=== PATIENT | male | born 1970 | race Caucasian/White ===

== ENCOUNTER 2025-08-14 11:44 | Inpatient (IN) | payer OTHER, SELFPAY ==
[2025-08-14] VITALS (10 sets, daily range): BP systolic 143–175; BP diastolic 74–89; BMI 43.2; BMI 43.3
--- NOTE | 2025-08-14 07:51 | ED.GENMED ---
History of Present Illness
General
Chief Complaint: Oral/Mouth Problem
Time Seen by Provider: 08/14/25 07:48
Course
Orders/Labs/Results
Orders:
Orders
08/14/25 07:47
CT Neck With Iv Contrast Urgent
Comment:
Reason For Exam: lower mouth swelling, r/o ludwigs
Complete Blood Count/With Diff Urgent
Comprehensive Metabolic Panel Urgent
PTT Urgent
Prothrombin Time Urgent
Dexamethasone Sod Phosphate [Decadron] 10 mg IV NOW STA
Famotidine [Pepcid] 20 mg IV NOW STA
08/14/25 07:56
Diphenhydramine [Benadryl] 50 mg .ROUTE .STK-MED ONE
Vital Signs
Initial and Last Documented VS:
Initial Vital Signs
Temp Pulse Resp BP Pulse Ox
98.7 F 94 16 175/81 95
08/14/25 07:33 08/14/25 07:33 08/14/25 07:33 08/14/25 07:33 08/14/25 07:33
Last Documented Vital Signs
Temp Pulse Resp BP Pulse Ox
98.7 F 94 16 175/81 95
08/14/25 07:33 08/14/25 07:33 08/14/25 07:33 08/14/25 07:33 08/14/25 07:51
*Pulse Oximetry
SaO2: 95
Oxygen Mode of Delivery: Room air
ED Attending Note
ED Attending Note
Patient seen and examined by attending physician: Yes
I performed the substantive portion of visit, reviewed & personally made and approve the management plan that is documented in note by myself or CHANEL.: Yes
I performed a history and physical exam of patient and discussed management with resident, I reviewed resident's note and agree with documented findings and plan of care.: Yes
ED Attending Note:
54-year-old male with history of hypertension on lisinopril presenting to the emergency department with swelling to the tongue. Patient reports that he woke up acutely around 330 this morning with swelling to the tongue and fullness in the mouth.
Difficulty through his mouth, however no difficulty breathing through his nose. No feeling of throat closure. Denies having these symptoms in the past. He last took his lisinopril yesterday. Denies any recent dental infections or fever. Denies
chest pain. Denies abdominal pain. Denies additional acute medical complaints.
Vital signs on arrival significant for high blood pressure. On exam, patient with significant swelling to the right side of the tongue as well as swelling underneath the floor of the, as well as submandibular swelling. Concern for acute angioedema
versus Siddharth's angina. Suspect that the angioedema could be secondary to lisinopril, however the floor of the mouth swelling raises concern for possible Siddharth's. Will administer steroids, famotidine. Patient received Benadryl prior to arrival.
Will urgently obtain a CT of the neck for any signs of suspicious infection. Will continue to very closely monitor airway.
-
Portions of this chart may have been created with voice recognition software.� Occasional wrong word or��sound alike� substitutions may have occurred due to the inherent limitations of voice recognition software.
Discharge Plan
Interventions
Interventions:
*Risk Screen - Suicide Last Done: 08/14/25 07:33
*Neglect/Abuse Screening Last Done: 08/14/25 07:33
Discharge Date and Time
Print Language: BOTSWANAN
--- NOTE | 2025-08-14 07:51 | ED.GENMED ---
History of Present Illness
<Angelo Alcazar PA-C - Last Filed: 08/14/25 10:22>
General
Chief Complaint: Oral/Mouth Problem
Source: patient and spouse
Time Seen by Provider: 08/14/25 07:48
History of Present Illness
History of Present Illness:
54-year-old male with past medical history of hypertension managed on lisinopril and another antihypertensive medication that patient cannot remember at the moment presenting to the ER for evaluation after feeling as tongue/throat started to swell
around 3 AM, woke up at 6 with significant swelling to the right side of his tongue and difficulty swallowing. Patient denies any other symptoms, any new foods or anything else that he could think of that might cause an allergic reaction. Denies
any history of similar. No fevers or recent illnesses infectious symptoms. Patient is without any pain. He did take 125 mg tablet of Benadryl prior to arrival with no relief.
Past History
<Angelo Alcazar PA-C - Last Filed: 08/14/25 10:22>
Past History
ED Past Medical History: HTN
ED Past Surgical History: Orthopedic
Social History
Tobacco: Non-smoker
Alcohol: Occasional
Drug: None
Personal:
Living: with family
Review of Systems
<Angelo Alcazar PA-C - Last Filed: 08/14/25 10:22>
Review of Systems
All Other Systems: ROS reviewed and negative except as documented in HPI and ROS
Phy Exam
<MICHAEL Steel Last Filed: 08/14/25 10:22>
Physical Exam
Physical Exam:
GENERAL: Alert , in no apparent distress
HEAD: Normocephalic atraumatic
EYE: conjunctiva clear
NECK: Supple, firmness within the submandibular region with edema noted. no stridor, no trismus
ENT: moderate to severe right sided tongue edema, posterior oropharynx with no edema. Tolerating secretions. mmm.
CARDIAC: Regular rate and rhythm
LUNGS: Clear breath sounds bilaterally, no acute respiratory distress, no wheezes/rales/rhonchi
NEUROLOGICAL: Alert and oriented
SKIN: Warm and dry, skin intact.
MUSCULOSKELETAL: well perfused. edema to dorsum of feet bilateral is normal per patient
PSYCH: Normal and appropriate interaction.
Scores
<Angelo Alcazar PA-C - Last Filed: 08/14/25 10:22>
Heart Failure Risk
Heart Failure Risk Score: Not Applicable
Heart Score for Chest Pain Patients
STEMI patient?: Not applicable
Withdrawal Assessment of Alcohol
Withdrawal Assessment Completed?: Not applicable
Course
<Angelo Alcazar PA-C - Last Filed: 08/14/25 10:22>
Orders/Labs/Results
Orders:
Orders
08/14/25 07:47
CT Neck With Iv Contrast Urgent
Comment:
Reason For Exam: lower mouth swelling, r/o ludwigs
Dexamethasone Sod Phosphate [Decadron] 10 mg IV NOW STA
Famotidine [Pepcid] 20 mg IV NOW STA
08/14/25 07:56
Diphenhydramine [Benadryl] 50 mg .ROUTE .STK-MED ONE
08/14/25 08:15
Diphenhydramine [Benadryl] 25 mg IV NOW STA
08/14/25 08:27
Complete Blood Count/With Diff Urgent
Comprehensive Metabolic Panel Urgent
PTT Urgent
Prothrombin Time Urgent
08/14/25 08:28
Lidocaine 4% Cream [Lmx 4] 2 applic TOPICAL NOW STA
Lidocaine HCl Mpf [Xylocaine 4% Mpf] 0.5 ml NASAL NOW STA
08/14/25 08:55
Ampicillin/Sulbactam 3 G [Unasyn] 3 gm 0.9% Sodium Chloride 100 ml [Nss] 100 ml IV NOW
08/14/25 09:00
Flush (0.9% Sodium Chloride) [Flush (Nss)] See Dose Instructions IV PER PROTOCOL
08/14/25 09:52
Admit/Transfer Patient As Directed
Co-Sign Provider:
Level of Care: Inpatient admission
Assign to:: IMU- Intermediate Care
Physician / Group: Sabine Ortega
Diagnosis: concern for Siddharth angina versus SANYA-I angioedema
Reason for Hospitalization: concern for Siddharth angina versus SANYA-I angioedema
Expected length of stay greater than two midnights?: Yes
ELOS- Estimated Length of Stay in days: 3
I certify the patient meets the requirements for IP care: Yes
PRN Pain Medication Management As Directed
May give lesser potent ordered pain med per pt: Yes
preference::
Protocol:: Medication orders for pain may be administered in a
manner that supports deferring to patient preference
when the pt is:
- Requesting an ordered lesser potent pain medication.
Least to most potent pain medications are defined
as: acetaminophen < NSAID < tramadol < opioids
(morphine, oxycodone, hydromorphone).
- Requesting a lesser dose of the same medication IF
ORDERED.
- Requesting a less intrusive route of administration
if both routes are prescribed by the provider (PO <
IV).
08/14/25 09:53
Code Status As Directed
Resuscitation Status: Full Code
08/14/25 10:02
0.9% Sodium Chloride 500 ml [Nss] 500 ml IV BOLUS
Abnormal Lab Results
08/14/25
08:27
RBC 3.42 L 10^6/uL
(4.70-6.10)
Hgb 9.2 L g/dL
(13.0-18.0)
Hct 31.6 L %
(39.0-52.0)
MCH 26.9 L pg
(27.0-31.0)
MCHC 29.1 L g/dL
(33.0-37.0)
RDW 16.9 H %
(11.5-14.5)
Plt Count 90 L 10^3/uL
(130-400)
Abs Immat Gran (auto) 0.1 H 10^3/uL
(0-0.05)
Absolute Monos (auto) 1.0 H 10^3/uL
(0.1-0.6)
Immature Gran % 0.8 H %
(0-0.5)
Lymphocytes % 16.3 L %
(20.5-51.1)
Monocytes % 13.5 H %
(1.7-9.3)
PT 15.3 H Sec
(11.4-14.6)
APTT 35.6 H Sec
(23.4-35.0)
Creatinine 0.6 L mg/dL
(0.7-1.3)
Glucose 132 H mg/dl
(70-99)
Total Bilirubin 1.4 H mg/dl
(0.2-1.3)
AST 130 H U/L
(17-59)
ALT 65 H U/L
(0-50)
Alkaline Phosphatase 165 H U/L
(38-126)
Total Protein 8.8 H g/dl
(6.3-8.2)
08/14/25 08:27
08/14/25 08:27
Vital Signs
Initial and Last Documented VS:
Initial Vital Signs
Temp Pulse Resp BP Pulse Ox
98.7 F 94 16 175/81 95
08/14/25 07:33 08/14/25 07:33 08/14/25 07:33 08/14/25 07:33 08/14/25 07:33
Last Documented Vital Signs
Temp Pulse Resp BP Pulse Ox
98.7 F 82 15 152/85 92
08/14/25 07:33 08/14/25 10:00 08/14/25 10:00 08/14/25 10:00 08/14/25 10:00
<Rebecca Evans DO - Last Filed: 08/14/25 10:07>
Orders/Labs/Results
Orders:
Orders
08/14/25 07:47
CT Neck With Iv Contrast Urgent
Comment:
Reason For Exam: lower mouth swelling, r/o ludwigs
Dexamethasone Sod Phosphate [Decadron] 10 mg IV NOW STA
Famotidine [Pepcid] 20 mg IV NOW STA
08/14/25 07:56
Diphenhydramine [Benadryl] 50 mg .ROUTE .STK-MED ONE
08/14/25 08:15
Diphenhydramine [Benadryl] 25 mg IV NOW STA
08/14/25 08:27
Complete Blood Count/With Diff Urgent
Comprehensive Metabolic Panel Urgent
PTT Urgent
Prothrombin Time Urgent
08/14/25 08:28
Lidocaine 4% Cream [Lmx 4] 2 applic TOPICAL NOW STA
Lidocaine HCl Mpf [Xylocaine 4% Mpf] 0.5 ml NASAL NOW STA
08/14/25 08:55
Ampicillin/Sulbactam 3 G [Unasyn] 3 gm 0.9% Sodium Chloride 100 ml [Nss] 100 ml IV NOW
08/14/25 09:00
Flush (0.9% Sodium Chloride) [Flush (Nss)] See Dose Instructions IV PER PROTOCOL
08/14/25 09:52
Admit/Transfer Patient As Directed
Co-Sign Provider:
Level of Care: Inpatient admission
Assign to:: IMU- Intermediate Care
Physician / Group: Sabine Ortega
Diagnosis: concern for Siddharth angina versus SANYA-I angioedema
Reason for Hospitalization: concern for Siddharth angina versus SANYA-I angioedema
Expected length of stay greater than two midnights?: Yes
ELOS- Estimated Length of Stay in days: 3
I certify the patient meets the requirements for IP care: Yes
PRN Pain Medication Management As Directed
May give lesser potent ordered pain med per pt: Yes
preference::
Protocol:: Medication orders for pain may be administered in a
manner that supports deferring to patient preference
when the pt is:
- Requesting an ordered lesser potent pain medication.
Least to most potent pain medications are defined
as: acetaminophen < NSAID < tramadol < opioids
(morphine, oxycodone, hydromorphone).
- Requesting a lesser dose of the same medication IF
ORDERED.
- Requesting a less intrusive route of administration
if both routes are prescribed by the provider (PO <
IV).
08/14/25 09:53
Code Status As Directed
Resuscitation Status: Full Code
08/14/25 10:02
0.9% Sodium Chloride 500 ml [Nss] 500 ml IV BOLUS
Abnormal Lab Results
08/14/25
08:27
RBC 3.42 L 10^6/uL
(4.70-6.10)
Hgb 9.2 L g/dL
(13.0-18.0)
Hct 31.6 L %
(39.0-52.0)
MCH 26.9 L pg
(27.0-31.0)
MCHC 29.1 L g/dL
(33.0-37.0)
RDW 16.9 H %
(11.5-14.5)
Plt Count 90 L 10^3/uL
(130-400)
Abs Immat Gran (auto) 0.1 H 10^3/uL
(0-0.05)
Absolute Monos (auto) 1.0 H 10^3/uL
(0.1-0.6)
Immature Gran % 0.8 H %
(0-0.5)
Lymphocytes % 16.3 L %
(20.5-51.1)
Monocytes % 13.5 H %
(1.7-9.3)
PT 15.3 H Sec
(11.4-14.6)
APTT 35.6 H Sec
(23.4-35.0)
Creatinine 0.6 L mg/dL
(0.7-1.3)
Glucose 132 H mg/dl
(70-99)
Total Bilirubin 1.4 H mg/dl
(0.2-1.3)
AST 130 H U/L
(17-59)
ALT 65 H U/L
(0-50)
Alkaline Phosphatase 165 H U/L
(38-126)
Total Protein 8.8 H g/dl
(6.3-8.2)
08/14/25 08:27
08/14/25 08:27
Vital Signs
Initial and Last Documented VS:
Initial Vital Signs
Temp Pulse Resp BP Pulse Ox
98.7 F 94 16 175/81 95
08/14/25 07:33 08/14/25 07:33 08/14/25 07:33 08/14/25 07:33 08/14/25 07:33
Last Documented Vital Signs
Temp Pulse Resp BP Pulse Ox
98.7 F 82 15 152/85 92
08/14/25 07:33 08/14/25 10:00 08/14/25 10:00 08/14/25 10:00 08/14/25 10:00
<Angelo Alcazar PA-C - Last Filed: 08/14/25 10:22>
MDM/Problems Addressed
Differential Diagnosis Includes:
SANYA-I angioedema
Malignancy
Ludwigs Angina
Dental Abscess
Allergic Reaction
MDM/Problems Addressed:
54-year-old male presenting to the ER for evaluation of a rather sudden onset of right sided tongue edema, difficulty swallowing but not difficulty breathing. There is significant right sided angioedema to the tongue as well as edema to the
submandibular space. I do have high degree of suspicion for SANYA inhibitor angioedema as the present cause for patient's symptoms. Will treat with Benadryl, steroids and Pepcid. Stat CT of the neck with IV contrast ordered to rule out infectious
process or malignancy. Will have low threshold to secure her airway if edema persists. I did discuss this with both the patient and spouse who are in agreement with treatment plan
Chronic conditions affecting care: HTN
<Angelo Alcazar PA-C - Last Filed: 08/14/25 10:22>
*Radiology
Radiology exam reviewed: radiology read reviewed
*Pulse Oximetry
SaO2: 95
Oxygen Mode of Delivery: Room air
Patient hypoxic: no
<Rebecca Evans DO - Last Filed: 08/14/25 10:07>
*Critical Care Note
Total Time (30-74mins, 75-104mins- exclusive of procedures): 50
comment:
The high probability of a clinically significant, sudden or life threatening deterioration of the ENT system(s) required my full and direct attention, intervention and personal management. The aggregate critical care time was 50 minutes. This time
is in addition to time spent performing reported procedures but includes the following:
[x] Data Review and interpretation
[x] Patient assessment and monitoring of vital signs
[x] Documentation
[x] Medication orders and management
<Angelo Alcazar PA-C - Last Filed: 08/14/25 10:22>
Patient Management
Discussion with other providers: Hospitalist, Casting Trucker and Radiologist
Escalation/DeEscalation of care consider admission/obs:
CT scan reviewed with radiology concern for possible Siddharth's angina. Unasyn ordered for possible infectious etiology. ENT notified and came to the bedside. They were able to perform direct visualization which showed the edema down to the base
of the tongue but the remaining portion of the airway remained without compromise. ENT recommending continued IV steroids and IV antibiotics, they will continue to see in consult. Hospitalist team was notified and accepts for continued evaluation
and treatment
ED Attending Note
<Angelo Alcazar PA-C - Last Filed: 08/14/25 10:22>
ED Attending Note
Patient seen and examined by attending physician: Yes
I performed the substantive portion of visit, reviewed & personally made and approve the management plan that is documented in note by myself or CHANEL.: Yes
I performed a history and physical exam of patient and discussed management with resident, I reviewed resident's note and agree with documented findings and plan of care.: Yes
ED Attending Note:
54-year-old male with history of hypertension on lisinopril presenting to the emergency department with swelling to the tongue. Patient reports that he woke up acutely around 330 this morning with swelling to the tongue and fullness in the mouth.
Difficulty through his mouth, however no difficulty breathing through his nose. No feeling of throat closure. Denies having these symptoms in the past. He last took his lisinopril yesterday. Denies any recent dental infections or fever. Denies
chest pain. Denies abdominal pain. Denies additional acute medical complaints.
Vital signs on arrival significant for high blood pressure. On exam, patient with significant swelling to the right side of the tongue as well as swelling underneath the floor of the, as well as submandibular swelling. Concern for acute angioedema
versus Siddharth's angina. Suspect that the angioedema could be secondary to lisinopril, however the floor of the mouth swelling raises concern for possible Siddharth's. Will administer steroids, famotidine. Patient received Benadryl prior to arrival.
Will urgently obtain a CT of the neck for any signs of suspicious infection. Will continue to very closely monitor airway.
-
Portions of this chart may have been created with voice recognition software.� Occasional wrong word or��sound alike� substitutions may have occurred due to the inherent limitations of voice recognition software.
<Rebecca Evans, DO - Last Filed: 08/14/25 10:07>
ED Attending Note
ED Attending Note:
54-year-old male with history of hypertension on lisinopril presenting to the emergency department with swelling to the tongue. Patient reports that he woke up acutely around 330 this morning with swelling to the tongue and fullness in the mouth.
Difficulty through his mouth, however no difficulty breathing through his nose. No feeling of throat closure. Denies having these symptoms in the past. He last took his lisinopril yesterday. Denies any recent dental infections or fever. Denies
chest pain. Denies abdominal pain. Denies additional acute medical complaints.
Vital signs on arrival significant for high blood pressure. On exam, patient with significant swelling to the right side of the tongue as well as swelling underneath the floor of the, as well as submandibular swelling. Concern for acute angioedema
versus Siddharth's angina. Suspect that the angioedema could be secondary to lisinopril, however the floor of the mouth swelling raises concern for possible Siddharth's. Will administer steroids, famotidine. Patient received Benadryl prior to arrival.
Will urgently obtain a CT of the neck for any signs of suspicious infection. Will continue to very closely monitor airway.
08:30 -patient clinically improving after steroids. He is able to speak more clearly, swelling has improved.
08:50 -CT is consistent with a Siddharth's angina versus cellulitis. Suspect less likely to be infectious given that patient denies any recent dental infections or systemic symptoms. However in this setting, will treat with antibiotics. Patient does
note recent possible sinus infection. ENT made aware with plan for admission for continued airway monitoring.
09:40 -ENT to bedside, did scope patient and notes that he does have significant swelling to the tongue and the posterior oropharyngeal space, however vocal cords and distal airway without any edema. Advises continued steroids and close airway
monitoring
Discharge Plan
Departure
Patient Disposition: Admit
Date of Disposition: 08/14/25
Time of Disposition: 08:51
Presentation/result/management discussed w/ accepting MD/DO: Hospitalist
Condition: Fair
Discharge Problem:
Angioedema
Prescriptions:
No Action
propranolol 10 mg Tablet
10 mg PO PRN PRN (Reason: anxiety public speaking)
amlodipine 10 mg Tablet
10 mg PO DAILY
Referrals:
Erika Beaver CRNP [Family Provider, Internal Medicine]
Interventions
Interventions:
*Risk Screen - Suicide Last Done: 08/14/25 07:33
*General Assessment Last Done: 08/14/25 07:31
*Neglect/Abuse Screening Last Done: 08/14/25 07:33
*ED- Fall Risk Assessment Last Done: 08/14/25 07:31
Discharge Date and Time
Print Language: POLISH
[2025-08-14] MEDS: DECADRON 10 MG IV (08:05)
[2025-08-14] MEDS: BENADRYL 25 MG IV ×2 (08:16→22:07)
[2025-08-14] MEDS: PEPCID 20 MG IV (08:17)
[2025-08-14 08:45] LABS: Hematocrit 31.6 % (39.0-52.0); Hemoglobin 9.2 g/dL (13.0-18.0); Mean Corp Hgb Conc. 29.1 g/dL (33.0-37.0); Mean Corpuscular Volume 92.4 fL (80.0-94.0); Nucleated Red Blood Cells % 0 % (-); Red Cell Dist. Width 16.9 % (11.5-14.5)
[2025-08-14 08:53] LABS: ALT (SGPT) 65 U/L (0-50); AST (SGOT) 130 U/L (17-59); Albumin 4.6 g/dl (3.5-5.0); Alkaline Phosphatase 165 U/L (38-126); Blood Urea Nitrogen 10 mg/dl (9-20); Calcium 8.8 mg/dl (8.4-10.2); Carbon Dioxide 24 mmol/L (22-30); Chloride 103 mmol/L (98-107); Glucose 132 mg/dl (70-99); Potassium 3.7 mmol/L (3.5-5.1); Sodium 137 mmol/L (135-145); Total Protein 8.8 g/dl (6.3-8.2); eGFR > 60.00
[2025-08-14] MEDS: UNASYN IV ×3 (09:05→22:07)
[2025-08-14 09:08] LABS: INR 1.17; PT 15.3 Sec (11.4-14.6)
[2025-08-14 09:09] LABS: APTT 35.6 Sec (23.4-35.0)
--- NOTE | 2025-08-14 09:11 | HPS.HSE ---
Family Physician
-
Family Physician: SERGIO Morales
Chief Complaint
-
tongue and throat swelling
History of Present Illness
Mr. Robert Ni is a 54 yo man with hx essential HTN (on Lisinopril) presents to the ER with symptoms of tongue/throat swelling. He woke up at 3AM without complaints then noticed at 6AM the right side of his tongue was very swollen. He was
having difficulty swallowing his own saliva. He had no lip swelling, stridor or wheezing. He took 125mg Benadryl prior to ER visit.
Patient reports over past several weeks he has had increased nasal congestion and intermittent epistaxis after blowing his nose. No fevers/chills. No sinus pressure and no tooth pain. He last saw dentist 2 years ago. No hx immunosuppression.
No chest pain. No shortness of breath/wheezing. No abdominal pain. No nausea/vomiting/diarrhea. No rash now or earlier.
He has been on Lisinopril since October.
At time of my interview, patient's exam is much improved, he is able to swallow saliva and converse without significant distress.
Medical History
Past Medical History
Past Medical History: Reports HTN
Past Surgical History: Reports Orthopedic
Social History
Tobacco: Former Smoker
Alcohol: Occasional (drinks 3-4x/week, not every day )
Family History
Family History: Not pertinent
Allergies / Home Medications
Allergies reflects when Allergies were last updated in [employer].
Home Medications with original date entered in [employer]
Allergy/Medication List:
Allergies
Allergy/AdvReac Type Severity Reaction Status Date / Time
No Known Allergies Allergy Unverified 08/14/25 07:38
*waiting for completion of med rec
Review of Systems
-
History Source: Patient
A 12 point ROS was completed and negative except as noted: Yes
Physical Exam
Vital Signs
Vital Signs
Temp Pulse Resp BP Pulse Ox
98.7 F 94 16 175/81 95
08/14/25 07:33 08/14/25 07:33 08/14/25 07:33 08/14/25 07:33 08/14/25 07:51
Physical Exam
General: No Apparent Distress
HEENT: PERRLA and Other (right side of tongue very swollen with hemorrhagic blisters (developed later in ER course per ER physician), no lymphadenopathy )
Respiratory: Clear and Other (no stridor ); No Wheezes
Cardiac: S1/S2 and Regular Rhythm
GI: Soft and Non Tender
Musculoskeletal: No Edema
Skin: Warm and Dry; No Rash
Neuro: AO x 3
Psych: Calm
Laboratory Results
-
08/14/25 08:27
08/14/25 08:27
Laboratory Results
Total Bilirubin 1.4 mg/dl (0.2-1.3) H 08/14/25 08:27
AST 130 U/L (17-59) H 08/14/25 08:27
ALT 65 U/L (0-50) H 08/14/25 08:27
Alkaline Phosphatase 165 U/L (38-126) H 08/14/25 08:27
Data Reviewed
-
Diagnostic Radiology: Report Reviewed by me
Lab Data: Labs Reviewed by me
Impression/Plan
-
Mr. Robert Ni is a 54 yo man with hx essential HTN (on Lisinopril) presents to the ER with symptoms of tongue/throat swelling. He took 125mg Benadryl prior to ER visit.
Triage VS: T 98.7, P 94, RR 16, BP 175/81, SpO2 95%
LABS: WBC 7.5, Hg 9.2, PLT , Na 137, K+ 3.7, Cl 103, CO2 24, Cr 0.6, Glucose 132, T. Bili 1.4, AST 130, ALT 65, Alk Phos [address]
CT Neck:
IMPRESSION: Somewhat poorly marginated region of decreased density within the floor the right side of the mouth at the lateral margin of the tongue and extending into the right parapharyngeal and submandibular region. This finding likely represents
Siddharth's angina/cellulitis. No significant air density is seen to suggest necrotizing component at this point.
Associated mass effect as discussed above.
MAR: IV Unasyn, Decadron, Pepcid, Intranasal Lidocaine
Right tongue swelling with right parapharyngeal and submandibular involvement on CT
Concern raised for Siddharth Angina versus SANYA-I angioedema
-seen with ENT in the ER
-symptoms already much improved post initial therapies (Benadryl, Pepcid and Decadron) given in ER. Given improvement and no e/o respiratory distress, hold off on IM Epi now
-admit to IMU
-NPO
-follow up final ENT recommendations
-continue IV Unasyn until clarification if this is infectious or not
-continue IV Decadron, pepcid, Benadryl qhs and PRN
-stop Lisinopril (now on allergy med list)
Essential HTN
-need to complete med rec
DVT PPx SCD
FULL CODE
76 minutes spent on patient care
[2025-08-14 09:59] LABS: Platelet Count 90 10^3/uL (130-400)
--- NOTE | 2025-08-14 09:59 | CON.MD ---
Addendum entered and electronically signed by Andrew Dillard MD 08/14/25 10:07:
Decadron 8 mg IV q 8 h or similar x at least 3 doses
Original Note:
Consultation - Medical
-
54 yo on Lisinopril presents c 1 day of swelling of tongue
No fever, no dental c/o
Some sinus symptoms and occas epistaxis
Initially, c some trouble talking, no stridor
Treated c antibx, steroids with some improvement
Afeb, WBC = normal
Edematous tongue, some bruising R side of tongue
Flex - significant watery edema of R base of tongue
Vocal cords normal
A/P Likely angioedema, suspect SANYA inhibitor, signs of trauma to tongue as well
Upper airway edema, but larynx ok
Would treat with steroids, Unasyn, Benadryl and airway observation
[2025-08-14] MEDS: NSS 500 IV (11:11)
--- NOTE | 2025-08-14 12:49 | EDCM ---
CM reviewed chart and met with pt bedside in ED. Pt lives with his and children in 2 story home, no MONTEZ. Has first floor half bath, full flight to second floor bedroom and full bath.
Independent in ADLs, personal care and ambulation at baseline. No assistive device, no DME in home
Confirms prescription coverage.
No hx VN or SNF
PCP: Erika Beaver
Pharmacy: [facility] [place], [address]
Anticipate discharge home, CM will continue to follow for any discharge planning needs.
[2025-08-14] MEDS: NSS 1000 IV (15:00)
--- NOTE | 2025-08-14 15:13 | W.PN.UPDATE ---
Update Note
Progress Note Update
Patient's tongue swelling is much improved. I went back to see him and it is noticeably much smaller, now just mildly swollen. Ok for tele, will still observe overnight given possible biphasic reaction.
Given time course of improvement, likely angioedema related to Lisinopril. Patient with on-going sinus infection > 10 days therefore will keep IV Unasyn, can transition to Augmentin tomorrow.
[2025-08-14] MEDS: DECADRON 4 MG IV ×2 (16:51→23:27)
[2025-08-15 03:00] VITALS: BP 145/78
[2025-08-15] MEDS: UNASYN IV ×2 (04:11→10:24)
[2025-08-15 07:30] VITALS: BP 160/89
[2025-08-15] MEDS: DECADRON 4 MG IV (08:25)
[2025-08-15] MEDS: PEPCID 20 MG IV (08:26)
[2025-08-15] MEDS: CLARITIN 10 MG PO (08:26)
[2025-08-15 08:44] LABS: Hematocrit 29.4 % (39.0-52.0); Hemoglobin 8.5 g/dL (13.0-18.0); Mean Corp Hgb Conc. 28.9 g/dL (33.0-37.0); Mean Corpuscular Volume 93.0 fL (80.0-94.0); Nucleated Red Blood Cells % 0 % (-); Platelet Count 82 10^3/uL (130-400); Red Cell Dist. Width 16.7 % (11.5-14.5)
[2025-08-15 09:08] LABS: Blood Urea Nitrogen 10 mg/dl (9-20); Calcium 8.7 mg/dl (8.4-10.2); Carbon Dioxide 22 mmol/L (22-30); Chloride 104 mmol/L (98-107); Estimated Creatinine Clearance > 125 ml/min; Glucose 157 mg/dl (70-99); Magnesium 2.1 mg/dl (1.6-2.3); Potassium 4.0 mmol/L (3.5-5.1); Sodium 140 mmol/L (135-145); eGFR > 60.00
[2025-08-15 11:30] VITALS: BP 149/83
--- NOTE | 2025-08-15 14:12 | W.DCSUMMARY ---
Discharge Summary
Discharge Data
Date of Admission: 08/14/25
Date of Discharge: 08/15/25
-
Pending Results: No
Hospital Course
54 yo man with hx essential HTN (on Lisinopril)
Presented with tongue and throat swelling. Found to have angioedema that was suspected to be secondary to lisinopril use. Was seen by ENT started on steroids Benadryl Pepcid. Noted quick improvement and monitored overnight for airway compromise.
Fortunately, swelling continued to improve submandibular muscle groups normalized and were not stiff any further tongue swelling improved. Discussed case with the ENT over [place] text recommended Medrol dose pack, Benadryl twice a day for 4 days and
Pepcid daily while on the Dosepak. Outpatient PCP follow-up. No longer able to use lisinopril or lisinopril like agents such as SANYA inhibitors or Entresto in the future.
Will start hydrochlorothiazide 12.5 mg daily. Will need to see PCP for continued blood pressure monitoring and dose adjusting of antihypertensive agents.
Neck CT
IMPRESSION: Somewhat poorly marginated region of decreased density within the floor the right side of the mouth at the lateral margin of the tongue and extending into the right parapharyngeal and submandibular region. This finding likely represents
Siddharth's angina/cellulitis. No significant air density is seen to suggest necrotizing component at this point.
Associated mass effect as discussed above.
Seen and examined on the day of discharge which was 08/15/2025. No new complaints. No acute overnight events.
Was not drooling, was able to tolerate secretions fluids food, no further sensations of throat closing
Submandibular region was soft and nontender
NAD
Scleral Anicteric
MMM
No JVD
CTABL
RRR, S1/S2
Soft, NT, ND, BS+
Warm, Dry
AAOx3
Calm
More than 30 minutes spent in discharge including
Final examination of the patient
Summarizing hospital stay
Instructions for continuing care to all relevant caregivers
Preparation of discharge records, prescriptions, and referral forms
Total time spent (in minutes): 33mins
Discharge Plan
-
Patient Disposition: Home (Routine Discharge)
Discharge Diagnosis/Procedures: Angioedema
Condition: Good
Diet: As tolerated, Low Fat, Low Cholesterol, Low Sodium and No added salt
Activity: As tolerated
Activity Restrictions/Additional Instructions:
Presented with tongue and throat swelling. Found to have angioedema that was suspected to be secondary to lisinopril use. Was seen by ENT started on steroids Benadryl Pepcid. Noted quick improvement and monitored overnight for airway compromise.
Fortunately, swelling continued to improve submandibular muscle groups normalized and were not stiff any further tongue swelling improved. Discussed case with the ENT over [place] text recommended Medrol dose pack, Benadryl twice a day for 4 days and
Pepcid daily while on the Dosepak. Outpatient PCP follow-up. No longer able to use lisinopril or lisinopril like agents such as SANYA inhibitors or Entresto in the future.
Will start hydrochlorothiazide 12.5 mg daily. Will need to see PCP for continued blood pressure monitoring and dose adjusting of antihypertensive agents.
Instructions: Angioedema caused by SANYA inhibitor medicines
Referrals:
Erika Beaver CRNP [Family Provider, Internal Medicine]
Additional Discharge Medication Instructions: STOP LISINOPRIL
Prescriptions:
New
diphenhydramine HCl [Benadryl Allergy] 25 mg tablet
25 mg PO BID 6 Days Qty: 12 0RF
famotidine [Pepcid] 20 mg tablet
20 mg PO DAILY Qty: 6 0RF
methylprednisolone [Medrol (Emeterio)] 4 mg tablets,dose pack
See Rx Instructions .ROUTE .COMPLEX Qty: 21 0RF
Rx Instructions:
for 6 days
hydrochlorothiazide 12.5 mg tablet
12.5 mg PO DAILY Qty: 30 0RF
Discontinued
propranolol 10 mg Tablet
10 mg PO PRN PRN (Reason: anxiety public speaking)
amlodipine 10 mg Tablet
10 mg PO DAILY
Discharge Orders:
Discharge Patient (As Directed); Ordered 08/15/25
Ordered By: Rhys Richey
Discharge Date and Time
Print Language: KHMER
--- NOTE | 2025-08-15 14:37 | CM ---
CM reviewed chart, patient for d.c today.
Plan home no needs.
CM will continue to follow for all d/c needs.
Plan; home no needs
== END 2025-08-15 15:19 | disposition home or self-care (01) | DRG 916 ==
LOC: 4 WEST ACU 11:44
PROVIDERS: ADMITTING PHYSICIAN Student in an Organized Health Care Education/Training Program; ATTENDING PHYSICIAN Hospitalist; EMERGENCY PHYSICIAN Student in an Organized Health Care Education/Training Program; FAMILY PHYSICIAN Nurse Practitioner Family; OTHER PHYSICIAN Otolaryngology
DX: T78.3XXA Angioneurotic edema, initial encounter (principal); K12.2 Cellulitis and abscess of mouth; Z87.891 Personal history of nicotine dependence; Z79.899 Other long term (current) drug therapy; K14.0 Glossitis; I10 Essential (primary) hypertension; R13.10 Dysphagia, unspecified; Y84.8 Other medical procedures as the cause of abnormal reaction of the patient, or of later complication, without mention of misadventure at the time of the procedure
CPT/HCPCS: 70491; 80048; 80053; 83735; 85025; 85610; 85730; 96365; 96375; 99291; Q9967